=== PATIENT | female | born 1950 | race Caucasian/White ===

== ENCOUNTER 2019-02-22 07:35 | Outpatient (RCR) | payer MEDICARE, MEDICAID, SELFPAY | END 2019-03-22 23:59 | disposition home or self-care (01) | LOC: SPT 07:35 | PROVIDERS: Family Provider Family Medicine; PCP Family Medicine; Visit Provider Family Medicine | DX: G44.229 Chronic tension-type headache, not intractable (principal) | CPT/HCPCS: 97110; 97150; 97162 ==

== ENCOUNTER 2019-03-19 11:59 | Outpatient (CLI) | payer MEDICARE, MEDICAID, SELFPAY ==
--- NOTE | 2019-03-19 12:01 | MM_ITS ---
WS: [id number] BILATERAL SCREENING DIGITAL MAMMOGRAM WITH CAD HISTORY: SCREENING COMPARISON: 09/14/2017 Bilateral CC and MLO views submitted. Computer aided detection analyzed. Breast composition: The breasts are heterogeneously dense, which may obscure small masses. No suspici ous masses, microcalcifications or architectural distortion. MM/[place] [id number] IMPRESSION: BI-RADS: 1-Negative FOLLOW UP: 1 Year Follow-up
== END 2019-03-19 12:00 | disposition home or self-care (01) ==
LOC: RADSHAW 11:59
PROVIDERS: Family Provider Family Medicine; PCP Family Medicine; Visit Provider Family Medicine
DX: Z12.31 Encounter for screening mammogram for malignant neoplasm of breast (principal)
CPT/HCPCS: 77067

== ENCOUNTER → 2019-04-25 14:55 | Outpatient (BNVA) | payer MEDICARE, MEDICAID, SELFPAY | PROVIDERS: Family Provider Family Medicine; PCP Family Medicine; Visit Provider Nurse Practitioner Family | DX: N39.0 Urinary tract infection, site not specified (principal) | CPT/HCPCS: 81003; 87086 ==

== ENCOUNTER → 2019-12-31 16:05 | Outpatient (BNVA) | payer MEDICARE, MEDICAID, SELFPAY | PROVIDERS: Family Provider Family Medicine; PCP Family Medicine; Visit Provider Nurse Practitioner Family | DX: Z20.828 Contact with and (suspected) exposure to other viral communicable diseases (principal); J06.9 Acute upper respiratory infection, unspecified | CPT/HCPCS: 87635 ==

== ENCOUNTER 2020-01-07 11:09 | Outpatient (CLI) | payer MEDICARE, MEDICAID, SELFPAY ==
--- NOTE | 2020-01-07 11:19 | XRR_ITS ---
PROCEDURE INFORMATION: Exam: XR Right Hand Exam date and time: 01/07/2020 11:23 AM Age: 69 years old Clinical indication: Pain; Hand; Bilateral; Additional info: Arthritis hand TECHNIQUE: Imaging protocol: XR Right hand. Views: 3 or more views. COMPARISON: No relevant prior studies available. FINDINGS: Bones/joints: No fracture, dislocation or other acute bone or joint abnormalities are seen. Chronic degenerative joint disease is present especially in the lateral aspect of the wrist and in the 1st carpometacarpal joint with joint space narrowing sclerosis and small osteophyte formation. There is also mild DJD in the DIP joints with joint space narrowing and sclerosis. No bony destruction is seen. Soft tissues: Normal. XR/XR hand RT min 3V* [id number] IMPRESSION: Chronic degenerative joint disease especially in the lateral wrist and 1st carpometacarpal joint.
--- NOTE | 2020-01-07 11:19 | XRR_ITS ---
PROCEDURE INFORMATION: Exam: XR Left Hand Exam date and time: 01/07/2020 11:23 AM Age: 69 years old Clinical indication: Pain; Hand; Bilateral; Additional info: Arthritis hand TECHNIQUE: Imaging protocol: XR Left hand. Views: 3 or more views. COMPARISON: No relevant prior studies available. FINDINGS: Bones/joints: No fracture, dislocation or other acute bone or joint abnormalities are seen. Chronic degenerative disease is present especially in the lateral aspect of the wrist and 1st carpometacarpal joint with prominent joint space narrowing sclerosis and osteophyte formation. Mild degenerative disease is present in the DIP joints with narrowing and sclerosis. No destruction is seen. Soft tissues: Normal. XR/XR hand LT min 3V* [id number] IMPRESSION: Chronic degenerative joint disease especially prominent in the lateral aspect of the wrist and 1st carpometacarpal joint.
== END 2020-01-07 11:10 | disposition home or self-care (01) ==
LOC: RADWPI 11:14
PROVIDERS: PCP Family Medicine; Visit Provider Family Medicine
DX: M19.042 Primary osteoarthritis, left hand (principal); M19.041 Primary osteoarthritis, right hand
CPT/HCPCS: 73130

== ENCOUNTER → 2020-12-09 09:16 | Outpatient (BNVA) | payer MEDICARE, MEDICAID, SELFPAY | PROVIDERS: PCP Family Medicine; Visit Provider Family Medicine | DX: Z00.00 Encounter for general adult medical examination without abnormal findings (principal); M19.042 Primary osteoarthritis, left hand | CPT/HCPCS: 80053; 85025 ==

== ENCOUNTER 2021-12-01 12:11 | Outpatient (CLI) | payer MEDICARE, MEDICAID, SELFPAY ==
--- NOTE | 2021-12-01 13:31 | XRR_ITS ---
PROCEDURE INFORMATION: Exam: XR Left Hand Exam date and time: 12/01/2021 1:33 PM Age: 71 years old Clinical indication: Pain; Bilateral; Prior surgery; Surgery type: Left hand; Additional info: More pain in right hand S/P surg left TECHNIQUE: Imaging protocol: Radiologic exam of the Left hand. Views: 3 or more views. COMPARISON: CR XR hand LT min 3V* [id number] 01/07/2020 11:26 AM FINDINGS: Bones/joints: No acute bony abnormalities seen. There are 2 small metallic plates in projection of the a proximal 1st and 2nd metacarpals. Narrowing of the interphalangeal articulations of multiple digits. Findings correspond to osteoarthritis. Soft tissues: Soft tissue edema is seen in the lateral aspect of the wrist. XR/XR hand LT min 3V* [id number] IMPRESSION: 1. No acute bony abnormality. 2. Soft tissue edema lateral wrist. 3. Osteoarthritis 4. Metallic plates in the projection of the 1st and 2nd metacarpal scored all of
--- NOTE | 2021-12-01 13:31 | XRR_ITS ---
PROCEDURE INFORMATION: Exam: XR Right Hand Exam date and time: 12/01/2021 1:33 PM Age: 71 years old Clinical indication: Pain; Bilateral; Prior surgery; Surgery type: Left hand; Additional info: More pain right hand, S/P surg left TECHNIQUE: Imaging protocol: Radiologic exam of the Right hand. Views: 3 or more views. COMPARISON: CR XR hand RT min 3V* [id number] 01/07/2020 11:26 AM FINDINGS: Bones/joints: Normal. Soft tissues: Normal. XR/XR hand RT min 3V* [id number] IMPRESSION: No acute findings.
== END 2021-12-01 12:12 | disposition home or self-care (01) ==
LOC: RAD 12:16
PROVIDERS: PCP Family Medicine; Visit Provider Family Medicine
DX: M19.042 Primary osteoarthritis, left hand (principal); M19.041 Primary osteoarthritis, right hand; G44.229 Chronic tension-type headache, not intractable; Z98.890 Other specified postprocedural states
CPT/HCPCS: 73130; 80053; 85025

== ENCOUNTER 2021-12-22 06:00 | Outpatient (RCR) | payer MEDICARE, MEDICAID, SELFPAY | END 2022-01-19 23:59 | disposition home or self-care (01) | LOC: SPT 06:00 | PROVIDERS: PCP Family Medicine; Visit Provider Family Medicine | DX: M50.90 Cervical disc disorder, unspecified, unspecified cervical region (principal) | CPT/HCPCS: 97110; 97161 ==

== ENCOUNTER 2022-01-20 06:00 | Outpatient (RCR) | payer MEDICARE, MEDICAID, SELFPAY | END 2022-02-19 23:59 | disposition home or self-care (01) | LOC: SPT 06:00 | PROVIDERS: PCP Family Medicine; Visit Provider Family Medicine | DX: M50.90 Cervical disc disorder, unspecified, unspecified cervical region (principal) | CPT/HCPCS: 97110 ==

== ENCOUNTER 2023-11-23 07:43 | Outpatient (CLI) | payer MEDICARE, MEDICAID, SELFPAY ==
--- NOTE | 2023-11-23 07:53 | MM_ITS ---
WS: [id number] VIEWS: MLO and CC views both breasts. 3D digital tomosynthesis is also included in this exam. Comparison made with prior exam of 09/14/2017, 03/19/2019.. Findings: The breasts are extremely dense, which lowers the sensitivity of mammography. No suspicious mass, tumor calcification or architectural distortion. MM/MM scr BI tomosynthesis [id number] Impression: BI-RADS: 2 - Benign FOLLOW-UP: 1 Year Follow-up This mammogram was also analyzed by the Computer Aided Detection System [employer].
== END 2023-11-23 07:44 | disposition home or self-care (01) ==
LOC: RAD 07:46
PROVIDERS: PCP Family Medicine; Visit Provider Family Medicine
DX: Z12.31 Encounter for screening mammogram for malignant neoplasm of breast (principal); R92.333 Mammographic heterogeneous density, bilateral breasts
CPT/HCPCS: 77063; 77067

== ENCOUNTER 2024-01-09 13:42 | Outpatient (CLI) | payer MEDICARE, MEDICAID, SELFPAY ==
--- NOTE | 2024-01-09 13:47 | XR_ITS ---
WS: [id number] DEXA (DUAL ENERGY X-RAY ABSORPTIOMETRY) Bone mineral density was performed using a [employer] machine. HISTORY: OSTEOPOROSIS COMPARISON: 09/14/2017 Lumbar spine BMD (L1-L4): 1.152 g/cm2 T score: -0.2 Z score: 1.8 Total hip BMD: Left: 0.842 g/cm2. T score: -1.3 Z score: 0.5 Right: 0.767 g/cm2. T score: -1.9 Z score: -0.1 10 year probability of a major osteoporotic fracture is 22.7%. Compared to the prior study from 09/14/2017. Lumbar spine bone mineral density has decreased by 3.8%. Bilateral hips bone mineral density has increased by 22.7%. XR/XR DEXA axial skeleton* [id number] IMPRESSION: OSTEOPENIA based upon the WHO classification for females. Significant decrease in bone mineral density of the lumbar spine since the prio r study. Significant increase in bone mineral density within the hips since the prior debbiey.
== END 2024-01-09 13:43 | disposition home or self-care (01) ==
LOC: RAD 13:42
PROVIDERS: PCP Family Medicine; Visit Provider Family Medicine
DX: Z12.31 Encounter for screening mammogram for malignant neoplasm of breast (principal); M81.0 Age-related osteoporosis without current pathological fracture; M85.80 Other specified disorders of bone density and structure, unspecified site
CPT/HCPCS: 77080